=== PATIENT | female | born 2000 | race Caucasian/White ===

== ENCOUNTER 2024-02-01 11:18 | Observation (INO) ==
[2024-02-01 13:24] LABS: Urine Appearance Clear; Urine Bilirubin Negative (Negative); Urine Blood Negative (Negative); Urine Color Colorless; Urine Glucose Negative (Negative); Urine Ketones Negative (Negative); Urine Nitrite Negative (Negative); Urine Protein Negative (Negative); Urine Specific Gravity 1.007 (1.002-1.030); Urine Urobilinogen Negative (Negative)
[2024-02-01 13:27] LABS: ABS Lymphocytes 2.4 10^3/uL (1.0-4.8); ABS Monocytes 0.6 10^3/uL (0.0-0.9); ABS Neutrophils 9.6 10^3/uL (1.5-7.6); ABS Nucleated RBC 0.01 10^3/ul; Hematocrit 42.2 % (35-45); Hemoglobin 13.8 g/dL (11.5-14.3); Lymphocyte % 19.1 %; Mean Corpuscular Hemoglobin 26.6 pg (27-33); Mean Corpuscular Hgb Conc 32.7 g/dL (31-36); Mean Corpuscular Volume 81.4 fL (80-97); Platelet Count 326 10^3/uL (150-450); Red Blood Count 5.18 10^6/uL (3.63-4.92); Red Cell Distribution Width 15.4 % (12-17); White Blood Count 12.7 10^3/uL (3.8-11.8)
[2024-02-01 13:47] LABS: ALT 23 U/L (7-52); AST 15 U/L (13-39); Albumin 4.6 g/dL (3.2-5.2); Albumin/Globulin Ratio 1.3 (1-3); Alkaline Phosphatase 96 U/L (35-149); Anion Gap 7 mmol/L (2-16); Blood Urea Nitrogen 6 mg/dL (6-24); C Reactive Protein 35.06 mg/L (<8.01); CO2 Carbon Dioxide 27 mmol/L (22-32); Calcium 9.7 mg/dL (8.6-10.3); Chloride 101 mmol/L (101-111); Creatinine, Serum 0.59 mg/dL (0.51-0.95); Globulin 3.5 g/dL (2-4); Glucose 105 mg/dL (70-100); Lipase 14 U/L (11.0-82.0); Sodium 135 mmol/L (135-145); Total Bilirubin 0.5 mg/dL (0.2-1.0); Total Protein 8.1 g/dL (6.4-8.9); eGFR CKD-EPI 129.8 (>60)
[2024-02-01 13:49] LABS: HCG Pregnancy < 0.60 mIU/mL
[2024-02-01] MEDS: Morphine 4 MG/ML VIAL (1 ml) IV ONE (14:14)
[2024-02-01] MEDS: Ondansetron 4 mg VIAL 2 MG/ML 2 ml VIAL IV ONE (14:14)
[2024-02-01] MEDS: Lactated Ringers 1000 ml BAG 1,000 ML IV ONE (14:14)
[2024-02-01] MEDS ORDERED: Ondansetron 4 mg VIAL 2 MG/ML 2 ml VIAL IV PRN (15:32)
[2024-02-01] MEDS ORDERED: Midazolam 2 mg/2 ml VIAL 1 mg/ml 2 ml VIAL (2 mg) ONE (15:34)
[2024-02-01] MEDS ORDERED: Rocuronium 50 mg VIAL 10 mg/ml 5 ml VIAL (50 mg) ONE ×2 (15:34→17:38)
[2024-02-01] MEDS ORDERED: Dexamethasone IV 4 MG/ML VIAL 1 ml VIAL ONE (15:34)
[2024-02-01] MEDS ORDERED: Lidocaine 2% PF 5 ML VIAL ONE (15:34)
[2024-02-01] MEDS ORDERED: fentaNYL 250 mcg/5 ml 50 MCG/ML 5 ml VIAL (250 MCG) ONE (15:34)
[2024-02-01] MEDS ORDERED: Propofol 10 MG/ML 20 ML BTL ONE (15:34)
[2024-02-01] MEDS ORDERED: Ondansetron 4 mg VIAL 2 MG/ML 2 ml VIAL ONE (15:34)
[2024-02-01] MEDS ORDERED: fentaNYL 100 mcg/2 ml 50 MCG/ML VIAL IV PRN (15:51)
[2024-02-01] MEDS ORDERED: Naloxone 0.4 mg VIAL 0.4 mg/ml 1 ml VIAL IV PRN (15:51)
[2024-02-01] MEDS ORDERED: HYDROmorphone 1 MG/1 ML SYRINGE IV PRN (15:51)
[2024-02-01] MEDS: Piperacillin/Tazobac 3.375 BAG 3.375 GM/100 ML BAG IV ONE (15:52)
[2024-02-01] MEDS ORDERED: Bupivacaine 0.25% EPI 200,000 30 ML SDV ONE (15:53)
[2024-02-01] MEDS ORDERED: Acetaminophen IV 1 GM/100ML 1,000 MG/100 ML BAG IV PRN (19:29)
[2024-02-01 20:53] LABS: Rapid COVID-19 Molecular Undetected (Undetected)
[2024-02-01] MEDS: Metoclopramide 5 MG/ML VIAL (10 mg) IV SLOW PU ONE (21:27)
[2024-02-01] MEDS: NS 0.45% 1000 ml BAG 1,000 ML IV SCH (21:37)
[2024-02-01] MEDS: Lactated Ringers 1000 ml BAG 1,000 ML IV SCH (22:33)
[2024-02-01] MEDS: Piperacillin/Tazobac 3.375 BAG 3.375 GM/100 ML BAG IV SCH ×2 (23:49→23:52)
[2024-02-02] MEDS: Desvenlafaxine 50 mg TAB ER (NF) PO SCH (08:47)
[2024-02-02] MEDS: COVID VAC 24-25 (12+) (Moderna) Syringe 0.5 mL IM ONE (08:55)
[2024-02-02] MEDS: Influenza Vaccine *TRI* 2024-25* 0.5 ML SYRINGE IM ONE (08:57)
[2024-02-02 11:16] VITALS: BP 114/79
== END 2024-02-02 12:45 | disposition home or self-care (01) ==
LOC: ED 11:18 → OR 16:34 → MEDTELE 16:34
PROVIDERS: ADMIT Surgery; ATTEND Surgery